=== PATIENT | female | born 1980 | race Caucasian/White ===

== ENCOUNTER 2016-05-12 20:51 | Emergency (ER) | payer MEDICAID | END 2016-05-12 21:44 | disposition home or self-care (01) | DX: J02.9 Acute pharyngitis, unspecified (principal) ==

== ENCOUNTER 2016-07-10 07:34 | Emergency (ER) | payer MEDICAID ==
--- NOTE | 2016-07-16 10:35 | ER ---
ADMIT: 07/10/2016 RM/LOC: ER [facility] MR#: [id number] [facility] [address] [place], [place] [id number] COLBY ALMANZAR [address] [facility] [address] [place] [address] Emergency Room Report SEX: F AGE: 35 : 1980 DATE: 07/10/2016 ADDENDUM: A 35-year-old female, speaks very little Tristanian, coming in with several complaints. 1. She was flushed. 2. She said her blood pressure was up. 3. Work is bothering her. 4. She has chronic back pain from work. 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 At this time, blood pressure is a little elevated, but nothing that I would treat at this time. She does have a history depression, but has not been treated for it. Then, it seems like it is on and off she says and then #3, she has this chronic back pain again from work. She had been on light duty, then she has a weight limit at this time. At this time, I do not find anything acute. We are going to keep her off just today and then she can return tomorrow. She needs to follow up with Dr. Mcgowan for her multitude of problems. These can all be worked up as an outpatient, nothing is acute that needs to be done at this time. She has no emergent medical condition per se. CONDITION ON DISCHARGE: Good. Stanislav Heard MD/ aniyah JOB #: [id number] CC: Stanislav Heard MD, Attending Physician Jim Mcgowan MD, Family Physician
== END 2016-07-10 08:40 | disposition home or self-care (01) ==
LOC: ER 07:34
DX: I10 Essential (primary) hypertension (principal); G89.29 Other chronic pain; M54.9 Dorsalgia, unspecified; F32.9 Major depressive disorder, single episode, unspecified; F17.200 Nicotine dependence, unspecified, uncomplicated